=== PATIENT | female | born 2000 | race Caucasian/White ===

== ENCOUNTER 2023-07-08 21:37 | Emergency (ER) | payer OTHER, SELFPAY ==
[2023-07-08 21:43] VITALS: BP 150/90; PULSE 103; RESP 20; TEMP 37; O2SAT 97; BMI 33.7
--- NOTE | 2023-07-08 21:59 | PC.NURSE ---
patient would like covid/flu swab done. states she has had chills, cough, congestion since saturday. has been taking tylenol and motrin as well as dayquil and nyquil. patient has not been around anyone recently that she knew was sick. normal o2 saturation. no difficulties breathing or SOB. normal lung sounds.
[2023-07-08 22:36] LABS: Adenovirus NOT DETECTED (NOT DETECTE); Bordetella parapertussis NOT DETECTED (NOT DETECTE); Coronavirus 229E NOT DETECTED (NOT DETECTE); Coronavirus HKU1 NOT DETECTED (NOT DETECTE); Coronavirus NL63 NOT DETECTED (NOT DETECTE); Coronavirus OC43 NOT DETECTED (NOT DETECTE); Human Metapneumovirus NOT DETECTED (NOT DETECTE); Human Rhinovirus/Enterovirus NOT DETECTED (NOT DETECTE); Influenza A NOT DETECTED (NOT DETECTE); Influenza B NOT DETECTED (NOT DETECTE); Mycoplasma pneumoniae NOT DETECTED (NOT DETECTE); Parainfluenza Virus 1 NOT DETECTED (NOT DETECTE); Parainfluenza Virus 2 NOT DETECTED (NOT DETECTE); Parainfluenza Virus 3 NOT DETECTED (NOT DETECTE); Parainfluenza Virus 4 NOT DETECTED (NOT DETECTE); Respiratory Syncytial Virus NOT DETECTED (NOT DETECTE); SARS-CoV-2 NOT DETECTED (NOT DETECTE)
--- NOTE | 2023-07-08 22:51 | ED.URI1 ---
HPI - URI/Sore Throat General Chief Complaint: Upper Respiratory Infection Stated Complaint: POSS COVID/FLU Time Seen by Provider: 07/08/23 22:48 Source: patient History of Present Illness HPI Narrative: ill since last PM with gen. body aches, cough, nausea and vomiting and feels weak. Not short of breath. cough is dry. No abdominal pain Related Data Home Medications Medication Instructions Recorded Confirmed norethindrone 1 mg-ethinyl 1 tab PO DAILY 07/08/23 07/08/23 estradiol 20 mcg (21)-iron 75 mg (7) tablet (Shasha Fe 07/20 (28)) Allergies Allergy/AdvReac Type Severity Reaction Status Date / Time No Known Drug Allergies Allergy Verified 07/08/23 21:53 Review of Systems ROS Status of ROS 10 or more systems reviewed and unremarkable except as noted in history and below [facility] Social History Smoking status: Never smoker Exam Constitutional Vital Signs, click to edit/add: Last Vital Signs Temp 98.6 F 07/08/23 21:43 Pulse 103 H 07/08/23 21:43 Resp 20 07/08/23 21:43 BP 150/90 H 07/08/23 21:43 Pulse Ox 97 07/08/23 21:43 O2 Del Method Room Air 07/08/23 21:43 Common normals: no apparent distress, average body habitus, oriented x3, no limitations, healthy appearing, alert and well nourished Eye Common normals: EOMs intact bilaterally and conjunctivae normal Respiratory Common normals: normal respiratory effort, no retractions, no use of accessory muscles and clear to auscultation bilaterally Cardio Common normals: regular rate, regular rhythm, S1 normal heart sound and S2 normal heart sound GI Common normals: Normal to inspection, nondistended, normoactive bowel sounds present, soft to palpation and non-tender Extremity Common normals: normal to inspection and full ROM Neuro Common normals: oriented x3, CN's II-XII intact bilaterally, moves all extremities and no focal motor deficits Psych Appearance: grossly normal Course Vital Signs Vital signs: Vital Signs Temperature 98.6 F 07/08/23 21:43 Pulse Rate 103 H 07/08/23 21:43 Respiratory Rate 20 07/08/23 21:43 Blood Pressure 150/90 H 07/08/23 21:43 Pulse Oximetry 97 07/08/23 21:43 Oxygen Delivery Method Room Air 07/08/23 21:43 Temperature 98.6 F 07/08/23 21:43 Pulse Rate 103 H 07/08/23 21:43 Respiratory Rate 20 07/08/23 21:43 Blood Pressure 150/90 H 07/08/23 21:43 Pulse Oximetry 97 07/08/23 21:43 Oxygen Delivery Method Room Air 07/08/23 21:43 MDM - URI/Sore Throat MDM Narrative Medical decision making narrative: patient ill since yesterday with body aches, nausea vomiting and gen. weakness. Has a cough but is not short of breath. exam neg. Treated with zofran and nausea resolved. Hydrated with Normal saline. cxray with findings of viral pneumonia and swab positive for influenza. Patient feeling better after intervention in the department and discharged to follow up with her doctor in next 2-3 days for recheck Lab Data Labs: Lab Results 07/08/23 07/08/23 07/08/23 Range/Units 22:00 22:30 22:56 WBC 6.3 (4.0-11.0) 10^3/uL RBC 4.55 (4.20-5.40) 10^6/uL Hgb 12.6 (12.0-16.0) g/dL Hct 38.7 (36.0-48.0) % MCV 85.1 (81.0-99.0) fL MCH 27.7 (26.7-34.0) pg MCHC 32.6 (29.9-35.2) g/dL RDW 13.2 (11.0-15.0) % Plt Count 226 (150-450) 10^3/uL MPV 11.0 (9.5-13.5) fL Neut % (Auto) 85.9 H (43.0-75.0) % Lymph % (Auto) 6.8 L (20.5-60.0) % Wilcox % (Auto) 6.3 (1.7-12.0) % Eos % (Auto) 0.5 L (0.9-7.0) % Baso % (Auto) 0.3 (0.2-2.0) % Neut # (Auto) 5.4 (1.4-6.5) 10^3/uL Lymph # (Auto) 0.4 L (1.2-3.8) 10^3/uL Wilcox # (Auto) 0.4 (0.3-0.8) 10^3/uL Eos # (Auto) 0.0 (0.0-0.7) 10^3/uL Baso # (Auto) 0.0 (0.0-0.1) 10^3/uL Abs Immat Gran (auto) 0.01 (0.00-0.03) 10^3/uL Imm/Tot Granulo (auto) 0.2 (0.0-0.5) % Sodium 131 L (136-145) mmol/L Potassium 3.3 L (3.5-5.1) mmol/L Chloride 101 (98-107) mmol/L Carbon Dioxide 24.2 (21.0-32.0) mmol/L Anion Gap 9.1 BUN 5.0 L (7.0-18.0) mg/dL Creatinine 0.85 (0.55-1.02) mg/dL Est GFR ( Amer) >60 (>=60) Est GFR (Non-Af Amer) >60 (>=60) BUN/Creatinine Ratio 5.9 Glucose 100 (74-106) mg/dL Lactate 1.8 (0.4-2.0) mmol/L Calcium 8.7 (8.5-10.1) mg/dL Total Bilirubin 0.2 (0.2-1.0) mg/dL AST 11 L (15-37) U/L ALT 25 (14-59) U/L Alkaline Phosphatase 74 (46-116) U/L Total Protein 7.8 (6.4-8.2) g/dL Albumin 3.4 (3.4-5.0) g/dL Globulin 4.4 g/dL Albumin/Globulin Ratio 0.8 Lipase 26.0 (16.0-77.0) U/L Urine Color Lt. yellow (YELLOW) Urine Clarity Clear (CLEAR) Urine pH 6.0 (5.0-9.0) Ur Specific Chapin 1.025 (1.005-1.025) Urine Protein Negative (NEG/TRACE) mg/dL Urine Glucose (UA) Negative (NEGATIVE) mg/dL Urine Ketones Negative (NEGATIVE) mg/dL Urine Occult Blood Negative (NEGATIVE) Urine Nitrite Negative (NEGATIVE) Urine Bilirubin Negative (NEGATIVE) Urine Urobilinogen 0.2 (0.2-1.0) EU/dL Ur Leukocyte Esterase Trace A (NEGATIVE) Urine RBC 2-5 A (0-2) #/HPF Urine WBC 2-5 A (NONE SEEN) #/HPF Ur Squamous Epith Cells Few A (NONE/RARE) #/LPF Urine Crystals None seen (None Seen) #/HPF Urine Bacteria Trace A (NONE SEEN) #/HPF Urine Casts None seen (NONE SEEN) #/LPF Urine Mucus None seen (NONE SEEN) Ur Culture Indicated? No Urine HCG, Qual Negative (NEGATIVE) Adenovirus (PCR) Not detected (NOT DETECTE) C. pneumoniae DNA (PCR) Not detected (NOT DETECTE) Coronavirus Type OC43 Not detected (NOT DETECTE) Coronavirus Type HKU1 Not detected (NOT DETECTE) Coronavirus Type 229E Not detected (NOT DETECTE) Coronavirus Type NL63 Not detected (NOT DETECTE) Human Metapneumovir PCR Not detected (NOT DETECTE) Influ A (H1N1/09) PCR Detected M. pneumoniae (PCR) Not detected (NOT DETECTE) Parainfluenza PCR Not detected (NOT DETECTE) Parainfluenza 2 (PCR) Not detected (NOT DETECTE) Parainfluenza 3 (PCR) Not detected (NOT DETECTE) Parainfluenza 4 (PCR) Not detected (NOT DETECTE) RSV (RT-PCR) Not detected (NOT DETECTE) Entero/Rhino (PCR) Not detected (NOT DETECTE) SARS-CoV-2 (PCR) Not detected (NOT DETECTE) Bordetella pertussis (PCR) Not detected (NOT DETECTE) B parapertussis DNA PCR Not detected (NOT DETECTE) Influenza Type A (PCR) Not detected (NOT DETECTE) Influenza Type B (PCR) Not detected (NOT DETECTE) Imaging Data Chest x-ray: Radiologist's impression: Kamini lundberg [id number] Patient Name: JORGE DING MRN: [id number] date: 2000 Sex: F Assigned Patient Location: ER Current Patient Location: ER Accession/Order Number: [id number] Exam Date: 07/08/2023 23:15 Report Date: 07/08/2023 23:48 At the request of: RADHA ARCHULETA Procedure: XR chest 1V CXR HISTORY: Shortness of breath. COMPARISON: None. TECHNIQUE: 1 view of the chest submitted for review. FINDINGS: The lungs are hyperaerated. Lines and tubes: None No acute focal infiltrate. Prominence of bronchopulmonary markings. No effusion. Cardiac silhouette measures within normal limits. Pulmonary vascularity is prominent. Osseous structures are normal for age. XR/XR chest 1V IMPRESSION: Prominence of bronchopulmonary markings. Please correlate for viral pneumonia vs fluid overload. Electronically authenticated by: SIMONA HERNÁNDEZ Date: 07/08/2023 23:48 Dictated By: Simona Hernández M.D. Signed By: 07/08/23 3207 DD/ 0900 TD/TT: Discharge Plan Discharge Chief Complaint: Upper Respiratory Infection Clinical Impression: Influenza Prescriptions / Home Meds: No Action norethindrone-e.estradiol-iron [Shasha Johnson 07/20 (28)] 1 mg-20 mcg (21)/75 mg (7) tablet 1 tab PO DAILY Instructions: Influenza (ED) Referrals: Physician,Non-Staff, MD [Primary Care Provider] - 1 week
[2023-07-08] MEDS: ONDANSETRON PF 4 MG/2 ML VIAL IV (22:52)
--- NOTE | 2023-07-08 22:53 | XR_ITS ---
The [address] [address] Patient Name: JORGE DING MRN: [id number] date: 2000 Sex: F Assigned Patient Location: ER Current Patient Location: ER Accession/Order Number: [id number] Exam Date: 07/08/2023 23:15 Report Date: 07/08/2023 23:48 At the request of: RADHA ARCHULETA Procedure: XR chest 1V CXR HISTORY: Shortness of breath. COMPARISON: None. TECHNIQUE: 1 view of the chest submitted for review. FINDINGS: The lungs are hyperaerated. Lines and tubes: None No acute focal infiltrate. Prominence of bronchopulmonary markings. No effusion. Cardiac silhouette measures within normal limits. Pulmonary vascularity is prominent. Osseous structures are normal for age. XR/XR chest 1V IMPRESSION: Prominence of bronchopulmonary markings. Please correlate for viral pneumonia vs fluid overload. Electronically authenticated by: ANGELIA HERNÁNDEZ Date: 07/08/2023 23:48
[2023-07-08 23:04] LABS: Basophils Percent Auto 0.3 % (0.2-2.0); Eosinophils Percent Auto 0.5 % (0.9-7.0); Hematocrit 38.7 % (36.0-48.0); Hemoglobin 12.6 g/dL (12.0-16.0); Immature Granulocytes Abs Auto 0.01 10^3/uL (0.00-0.03); Immature Granulocytes Pct Auto 0.2 % (0.0-0.5); Lymphocytes Absolute Auto 0.4 10^3/uL (1.2-3.8); Lymphocytes Percent Auto 6.8 % (20.5-60.0); Mean Corpuscular HGB Conc 32.6 g/dL (29.9-35.2); Mean Corpuscular Hemoglobin 27.7 pg (26.7-34.0); Mean Corpuscular Volume 85.1 fL (81.0-99.0); Monocytes Absolute Auto 0.4 10^3/uL (0.3-0.8); Monocytes Percent Auto 6.3 % (1.7-12.0); Neutrophils Absolute Auto 5.4 10^3/uL (1.4-6.5); Neutrophils Percent Auto 85.9 % (43.0-75.0); Platelet Count 226 10^3/uL (150-450); Red Blood Count 4.55 10^6/uL (4.20-5.40); Red Cell Distribution Width 13.2 % (11.0-15.0); White Blood Count 6.3 10^3/uL (4.0-11.0)
[2023-07-08] MEDS: 0.9 % SODIUM CHLORIDE 1,000 ML 999 ML IV (23:06)
[2023-07-08 23:09] LABS: Bilirubin Urine NEGATIVE (NEGATIVE); Blood Urine NEGATIVE (NEGATIVE); Clarity Urine CLEAR (CLEAR); Color Urine LT. YELLOW (YELLOW); Glucose Urine UA NEGATIVE (NEGATIVE); Ketones Urine NEGATIVE (NEGATIVE); Leukocyte Esterase Urine TRACE (NEGATIVE); Nitrite Urine NEGATIVE (NEGATIVE); Protein Urine NEGATIVE (NEG/TRACE); Specific Gravity Urine 1.025 (1.005-1.025); Urobilinogen Urine 0.2 EU/dL (0.2-1.0)
[2023-07-08 23:11] LABS: HCG Qualitative Urine* NEGATIVE (NEGATIVE); Urine Microscopic Indicated YES
[2023-07-08 23:17] LABS: Bacteria Urine TRACE #/HPF (NONE SEEN); Cast Seen? NONE SEEN #/LPF (NONE SEEN); Crystals Seen? None Seen #/HPF (None Seen); Mucus Urine NONE SEEN (NONE SEEN); Squamous Epithelial Cell Urine FEW #/LPF (NONE/RARE); Urine Culture Indicated NO
[2023-07-08 23:19] LABS: Lactate/Lactic Acid 1.8 mmol/L (0.4-2.0)
[2023-07-08 23:26] LABS: Alanine Aminotransferase 25 U/L (14-59); Albumin Globulin Ratio 0.8; Albumin Level 3.4 g/dL (3.4-5.0); Alkaline Phosphatase 74 U/L (46-116); Anion Gap 9.1; Aspartate Amino Transferase 11 U/L (15-37); BUN Creatinine Ratio 5.9; Bilirubin Total 0.2 mg/dL (0.2-1.0); Calcium 8.7 mg/dL (8.5-10.1); Carbon Dioxide 24.2 mmol/L (21.0-32.0); Chloride 101 mmol/L (98-107); Estimated GFR (African America >60 (>=60); Estimated GFR (Non-African Ame >60 (>=60); Globulin 4.4 g/dL; Glucose 100 mg/dL (74-106); Potassium 3.3 mmol/L (3.5-5.1); Sodium 131 mmol/L (136-145); Total Protein 7.8 g/dL (6.4-8.2)
[2023-07-08 23:27] LABS: Influenza A\\H1-2009 DETECTED
[2023-07-09] MEDS: ONDANSETRON 4 MG RAPDIS TABLET SL (00:04)
[2023-07-09 00:07] VITALS: BP 130/82; PULSE 90; RESP 16; O2SAT 99
== END 2023-07-09 00:10 | disposition home or self-care (01) ==
PROVIDERS: Emergency Provider Internal Medicine
DX: J10.1 Influenza due to other identified influenza virus with other respiratory manifestations (principal); Z20.822 Contact with and (suspected) exposure to COVID-19
CPT/HCPCS: 0202U; 36415; 71045; 80053; 81001; 83605; 83690; 84703; 85025; 96374; 99285; J2405; Q0162

== ENCOUNTER 2024-09-16 13:02 | Outpatient (OUT) | payer BC, SELFPAY ==
--- OUTSIDE RECORDS SUMMARY | 2024-09-16 13:24 | XMS_ITS | CCD ---
Author Organization [facility] Care Team Providers Care Patrol Agent Name Role Phone DR NORMA MELVIN Attending Unavailable EDDIE, DR NORMA Thomson Admitting Unavailable DR NORMA MELVIN Primary Care Unavailable DR NORMA MELVIN Consulting Unavailable ANDREA ., DR LIZAMA Admitting Unavailable ANDREA ., DR LIZAMA Consulting Unavailable ANDREA ., DR LIZAMA Attending Unavailable DR NORMA MELVIN Primary Care Unavailable Collette Smith Unavailable Norma Melvin Unavailable Medications Current Medications Medication Drug Class(es) Dates Sig (Normalized) Sig (Original) Norethindrone-E.Est radiol-Iron (6 sources) Estrogen Start: 09-03-2023 take 1 tablet by mouth once daily Norethindrone-E.Es tradiol-Iron 1 mg-20 mcg (21)/75 mg (7) tablet Active 1 TAB PO Daily September 03, 2023 1:00am Start: 09-03-2023 take 1 tablet by lizeth th once daily Norethindrone-E.Estradiol-Iron Active 1 TAB PO Daily September 03, 2023 1:00am Shasha FE 07/20 1 -20 MG-MCG Oral for 28 Days Active Completed/Discontinued Medications Medication Drug Class(es) Dates Sig (Normalized) Sig (Original) amoxicillin 500 mg oral tablet (4 sources) Penicillin-class Antibacterial Start: 10-09-2023 End: 12-11-2023 take 1 tablet by mouth three times daily Amoxicillin 500 mg tablet Discontinued 500 MG PO Three times daily October 09, 2023 12:00am December 11, 2023 10:03am meloxicam 15 mg oral tablet (5 sources) Nonsteroidal Anti-inflammatory Drug Start: 09-03-2023 End: 09-04-2023 take 1 tablet by mouth once daily Meloxicam 15 mg tablet Discontinued 15 MG PO Daily September 03, 2023 1:00am September 04, 2023 11:40am Start: 04-02-2023 take 1 tablet by lizeth th every twenty-four hours Meloxicam 15 MG 1 tablet Orally Once a day for 30 day(s) Mar, Active phentermine hydrochloride 37.5 mg oral tablet (11 sources) Sympathomimetic Amine Anorectic Start: 09-04-2023 End: 04-11-2024 take 1 tablet by mouth once daily 30 minutes after breakfast Phentermine (Adipex-P) 37.5 mg tablet Discontinued 37.5 MG PO Every morning 30 October 09, 2023 9:23am December 11, 2023 10:14am must administer 30 minutes before or 1-2 hours after breakfast Problems Active Problems Problem Classification Problem Date Documented Date Episodic/Chronic Anxiety disorders (5 sources) Anxiety disorder; Translations: [Anxiety disorder, unspecified] 09-03-2023 Chronic Contraceptive and procreative management (2 sources) Initiation of transdermal contraception; Translations: [Encounter for initial prescription of implantable subdermal contraceptive] Episodic Diabetes mellitus without complication (1 source) Abnormal glucose level; Translations: [Other abnormal glucose] Episodic Disorders of teeth and jaw (1 source) Periapical abscess without sinus tract; Translations: [Periapical abscess without sinus] Episodic Heart valve disorders (2 sources) Mitral valve disorder; Translations: [Nonrheumatic mitral (valve) prolapse] Onset: 10-08-2014 Chronic Immunizations and screening for infectious disease (2 sources) Sexually transmitted infectious disease; Translations: [Encounter for screening for infections with a predominantly sexual mode of transmission] 04-11-2024 Episodic Influenza (1 source) Upper respiratory tract infection due to Influenza; Translations: [Influenza due to unidentified influenza virus with other respiratory manifestations] Episodic Menopausal disorders (1 source) Premenopausal menorrhagia; Translations: [Excessive bleeding in the premenopausal period] Onset: 07-19-2014 Chronic Menstrual disorders (1 source) Dysmenorrhea; Translations: [Dysmenorrhea, unspecified] Onset: 11-11-2015 Chronic Mood disorders (1 source) Dysthymia; Translations: [Dysthymic disorder] Onset: 01-23-2016 Chronic Other complications of (1 source) Vomiting of ; Translations: [Vomiting of , unspecified] Episodic Other complications of (1 source) Finding related to ; Translations: [Other specified related conditions, unspecified trimester] Episodic Other ear and sense organ disorders (1 source) Infective otitis externa; Translations: [Unspecified infective otitis externa] Onset: 01-30-2017 Chronic Other female genital disorders (1 source) Noninflammatory disorder of the vagina; Translations: [Other specified noninflammatory disorders of vagina] Episodic Other female genital disorders (1 source) Disorder of female genital organs; Translations: [Unspecified condition associated with female genital organs and menstrual cycle] Episodic Other non-traumatic joint disorders (1 source) Pain in right shoulder Episodic Other nutritional; endocrine; and metabolic disorders (10 sources) Obesity; Translations: [Obesity, unspecified] 10-09-2023 Chronic Other nutritional; endocrine; and metabolic disorders (3 sources) Obesity, unspecified; Translations: [Obesity, unspecified] 09-04-2023 Chronic Other nutritional; endocrine; and metabolic disorders (1 source) Weight increased; Translations: [Abnormal weight gain] 09-16-2024 Episodic Other nutritional; endocrine; and metabolic disorders (1 source) Abnormal weight gain; Translations: [Abnormal weight gain] 09-16-2024 Episodic Other and delivery including normal (5 sources) test positive; Translations: [Encounter for test, result positive] Onset: 08-22-2020 Episodic Other screening for suspected conditions (not mental disorders or infectious disease) (5 sources) Encounter for screening for malignant neoplasm of cervix; Translations: [Encounter for screening for Streptococcus B] Onset: 11-06-2022 Episodic Other upper respiratory disease (1 source) Allergic rhinitis; Translations: [Allergic rhinitis, unspecified] Onset: 10-08-2014 Chronic Other upper respiratory infections (1 source) Chronic sinusitis; Translations: [Chronic sinusitis, unspecified] Chronic Other upper respiratory infections (5 sources) Acute upper respiratory infection, unspecified; Translations: [Acute sinusitis] Onset: 05-02-2015 Episodic Otitis media and related conditions (4 sources) Otitis media of right ear; Translations: [Otitis media, unspecified, right ear] 10-09-2023 Episodic Residual codes; unclassified (1 source) Gestation period, 38 weeks; Translations: [38 weeks gestation of ] Episodic Residual codes; unclassified (1 source) Gestation period, 36 weeks; Translations: [36 weeks gestation of ] Episodic Residual codes; unclassified (1 source) Gestation period, 37 weeks; Translations: [37 weeks gestation of ] Episodic Residual codes; unclassified (1 source) Gestation period, 30 weeks; Translations: [30 weeks gestation of ] Episodic Residual codes; unclassified (1 source) Gestation period, 34 weeks; Translations: [34 weeks gestation of ] Episodic Residual codes; unclassified (1 source) Gestation period, 26 weeks; Translations: [26 weeks gestation of ] Episodic Residual codes; unclassified (1 source) Gestation period, 28 weeks; Translations: [28 weeks gestation of ] Episodic Residual codes; unclassified (1 source) Gestation period, 18 weeks; Translations: [18 weeks gestation of ] Episodic Unclassified (2 sources) CONTACT W/AND (SUSP) EXPOS COVID-19; Translations: [CONTACT W/AND (SUSP) EXPOS COVID-19] Onset: 01-27-2022 Urinary tract infections (1 source) Urinary tract infectious disease; Translations: [Urinary tract infection, site not specified] Episodic Viral infection (2 sources) COVID-19; Translations: [Disease caused by 2019-nCoV] Onset: 01-27-2022 Past or Other Problems Problem Classification Problem Date Documented Date Episodic/Chronic Cardiac dysrhythmias (1 source) Palpitations; Translations: [Palpitations] Onset: 07-19-2014 Episodic Genitourinary symptoms and ill-defined conditions (1 source) Dysuria; Translations: [Dysuria] Onset: 04-18-2016 Episodic Malaise and fatigue (1 source) Malaise and fatigue; Translations: [Other malaise and fatigue] Onset: 10-08-2014 Episodic Nonmalignant breast conditions (1 source) Breast lump; Translations: [Unspecified lump in unspecified breast] Onset: 12-30-2014 Episodic Nonspecific chest pain (1 source) Chest pain; Translations: [Chest pain, unspecified] Onset: 03-14-2015 Episodic Other lower respiratory disease (1 source) Dyspnea; Translations: [Dyspnea, unspecified] Onset: 09-24-2014 Episodic Other nutritional; endocrine; and metabolic disorders (1 source) Overweight; Translations: [Overweight] Onset: 01-30-2017 Episodic Other nutritional; endocrine; and metabolic disorders (1 source) Body mass index 25-29 - overweight; Translations: [Body mass index 27.0-27.9, adult] Onset: 01-30-2017 Episodic Other skin disorders (1 source) Acne; Translations: [Acne, unspecified] Onset: 11-11-2015 Episodic Residual codes; unclassified (1 source) Gestation period, 14 weeks; Translations: [14 weeks gestation of ] Resolved: 06-27-2020 Episodic Residual codes; unclassified (1 source) Gestation period, 35 weeks; Translations: [35 weeks gestation of ] Resolved: 10-28-2020 Episodic Residual codes; unclassified (1 source) Gestation period, 10 weeks; Translations: [10 weeks gestation of ] Resolved: 05-27-2020 Episodic Spondylosis; intervertebral disc disorders; other back problems (2 sources) Low back pain; Translations: [Lumbago] Onset: 10-01-2013 Episodic Sprains and strains (1 source) Sprain of medial collateral ligament of knee; Translations: [Sprain and strain of medial collateral ligament of knee] Onset: 10-01-2013 Episodic Unclassified (1 source) CONTACT W/AND (SUSP) EXPOS COVID-19; Translations: [CONTACT W/AND (SUSP) EXPOS COVID-19] Onset: 01-24-2022 Unclassified (1 source) Gynecological examination normal; Translations: [Routine gynecological examination] Onset: 06-27-2020 Resolved: 07-22-2020 Viral infection (1 source) Infectious mononucleosis; Translations: [Infectious mononucleosis, unspecified without complication] Onset: 10-08-2014 Episodic Results Test Name Value Interpretation Reference Range Facility No Panel InformationOrdered By: Fatoumata Dawson on 04-11-2024 Quick Strep (POC) [facility] PAP ACOG PANEL 2: 21 to 29on 11-13-2022 Age Gdln ACOG Testing 21-29 Normal [facility] Comment on above: Performed By: #### [id number] #### [facility] [address] [place] [address] Dr. Amalia Fontaine Covid-19 PCR (CVDTBH)on 12-30 SARS-CoV-2 (COVID-19) RNA ANALI+probe Ql (Unsp spec) Detected Critically abnormal NOT DETECTED [facility] Comment on above: Result Comment: This test is not yet approved or cleared by the [place] FDA. When there are no FDA-approved or cleared tests available, and other criteria are met, FDA can make tests available under an emergency access mechanism called an Emergency Use Authorization (EUA). The EUA for this test is supported by the [place] of Health and Human Service's (HHS's) declaration that circumstances exist to justify the emergency use of in vitro diagnostics for the detection and/or diagnosis of the virus that causes COVID-19. This EUA will remain in effect (meaning this test can be used) for the duration of the COVID-19 declaration justifying emergency of IVDs, unless it is terminated or revoked by FDA (after which the test may no longer be used). Performed By: #### [facility] #### [facility] [address] [place] [address] Dr. Amalia Fontaine Vital Signs Date Time Vital Sign Value Performing Clinician Facility 09-16-2024 09:59-0400 Body height 160.02 cm [facility] 09-16-2024 09:59-0400 Body mass index (BMI) [Ratio] 34.9 kg/m2 [facility] 09-16-2024 09:59-0400 Body weight 89.35 kg [facility] 09-16-2024 09:59-0400 Diastolic blood pressure 86 mm[Hg] [facility] 09-16-2024 09:59-0400 Heart rate 64 /min [facility] 09-16-2024 09:59-0400 Systolic blood pressure 133 mm[Hg] [facility] 04-11-2024 14:44-0400 Body height 160.02 cm [facility] 04-11-2024 14:44-0400 Body mass index (BMI) [Ratio] 34.2 kg/m2 [facility] 04-11-2024 14:44-0400 Body temperature 99 [degF] [facility] 04-11-2024 14:44-0400 Body weight 87.77 kg [facility] 04-11-2024 14:44-0400 Diastolic blood pressure 82 mm[Hg] [facility] 04-11-2024 14:44-0400 Heart rate 76 /min [facility] 04-11-2024 14:44-0400 Respiratory rate 16 /min [facility] 04-11-2024 14:44-0400 SaO2% (BldA) [Mass fraction] 96 % [facility] 04-11-2024 14:44-0400 Systolic blood pressure 128 mm[Hg] [facility] 12-11-2023 09:56-0400 Body height 160.02 cm [facility] 12-11-2023 09:56-0400 Body mass index (BMI) [Ratio] 32.8 kg/m2 [facility] 12-11-2023 09:56-0400 Body weight 83.91 kg [facility] 12-11-2023 09:56-0400 Diastolic blood pressure 88 mm[Hg] [facility] 12-11-2023 09:56-0400 Heart rate 82 /min [facility] 12-11-2023 09:56-0400 Systolic blood pressure 123 mm[Hg] [facility] 10-09-2023 09:06-0400 Body height 160.02 cm [facility] 10-09-2023 09:06-0400 Body mass index (BMI) [Ratio] 33.1 kg/m2 [facility] 10-09-2023 09:06-0400 Body weight 84.93 kg [facility] 10-09-2023 09:06-0400 Diastolic blood pressure 85 mm[Hg] [facility] 10-09-2023 09:06-0400 Heart rate 81 /min [facility] 10-09-2023 09:06-0400 Systolic blood pressure 132 mm[Hg] [facility] 09-04-2023 10:34-0500 Body height 160.02 cm [facility] 09-04-2023 10:34-0500 Body mass index (BMI) [Ratio] 34.8 kg/m2 [facility] 09-04-2023 10:34-0500 Body weight 89.13 kg [facility] 09-04-2023 10:34-0500 Diastolic blood pressure 97 mm[Hg] [facility] 09-04-2023 10:34-0500 Heart rate 79 /min [facility] 09-04-2023 10:34-0500 Systolic blood pressure 130 mm[Hg] [facility] 04-02-2023 14:45-0400 Body height 160.02 cm Norma Melvin Other [facility] Other 04-02-2023 14:45-0400 Body mass index (BMI) [Ratio] 33.51 kg/m2 Norma Melvin Other [facility] Other 04-02-2023 14:45-0400 Body weight 85.82 kg Norma Melvin Other [facility] Other 04-02-2023 14:45-0400 Diastolic blood pressure 94 mm[Hg] Norma Melvin Other [facility] Other 04-02-2023 14:45-0400 Systolic blood pressure 129 mm[Hg] Norma Melvin Other [facility] Other 01-17-2023 17:35-0400 Body height 160.02 cm Collette Smith Other [facility] Other 01-17-2023 17:35-0400 Body mass index (BMI) [Ratio] 32.59 kg/m2 Collette Smith Other [facility] Other 01-17-2023 17:35-0400 Body temperature 98.2 [degF] Collette Smith Other [facility] Other 01-17-2023 17:35-0400 Body weight 83.46 kg Collette Smith Other [facility] Other 01-17-2023 17:35-0400 Diastolic blood pressure 70 mm[Hg] Collette Smith Other [facility] Other 01-17-2023 17:35-0400 Respiratory rate 18 /min Collette Smith Other [facility] Other 01-17-2023 17:35-0400 SaO2% (BldA) [Mass fraction] 97 % Collette Smith Other [facility] Other 01-17-2023 17:35-0400 Systolic blood pressure 128 mm[Hg] Collette Smith Other [facility] Other Encounters Encounter Date Encounter Type Care Provider Facility Start: 09-16-2024 Patient encounter status [facility] Start: 09-16-2024 End: 09-16-2024 ambulatory [facility] Work Phone: Start: 09-16-2024 End: 09-16-2024 Encounter for general adult medical examination without abnormal findings [facility] Start: 09-16-2024 End: 09-16-2024 Patient encounter procedure [facility] Physician [facility] Work Phone: Start: 04-11-2024 End: 04-11-2024 ambulatory [facility] Work Phone: Start: 04-11-2024 End: 04-11-2024 Patient encounter procedure [facility] Physician [facility] Work Phone: Start: 12-11-2023 End: 12-11-2023 ambulatory [facility] Work Phone: Start: 12-11-2023 End: 12-11-2023 Patient encounter procedure [facility] Physician [facility] Work Phone: Start: 10-09-2023 End: 10-09-2023 ambulatory [facility] Work Phone: Start: 10-09-2023 End: 10-09-2023 Patient encounter procedure [facility] Work Phone: Start: 09-04-2023 End: 09-04-2023 Patient encounter procedure [facility] Physician [facility] Work Phone: Start: 04-02-2023 End: 04-02-2023 ambulatory Norma Melvin Other [facility] Other Start: 04-02-2023 Office outpatient vi sit 15 minutes Norma Melvin [facility] Start: 01-17-2023 End: 01-17-2023 ambulatory Collette Smith Other [facility] Other Start: 01-17-2023 Office outpatient ne w 30 minutes Collette Smith [facility] Start: 11-06-2022 End: 11-06-[address] ALDA MENDEZ . Facility:[facility] Start: 01-24-2022 End: 01-24-[address] NORMA MELVIN Facility:[facility] Start: 01-23-2022 Gynecological examin ation normal Norma Melvin Other [facility] Other Procedures Date Procedure Procedure Detail Performing Clinician Start: 04-11-2024 Quick Strep (POC) screening Norma schwartz Other screening Norma schwartz Other Depression screening Norma Melvin Other Diabetes mellitus screening Norma Melvin Other visit Norma Melvin Other Viral screening Norma Melvin Other Plan of Treatment Date Care Activity Detail Author [facility] Payers Date Payer Category Payer Unknown [id number] 1998 Unknown [id number] 1961 Unknown [id number] 1961 Unknown [id number] [facility] [id number] Unknown Sade BC/BS [id number] Social History Date Type Detail Facility Unknown if ever smoked [facility] Other Sex Assigned At Sex Assigned At [facility] Other Start: 2000 Sex Assigned At Female [facility] Tobacco smoking status NHIS Unknown if ever smoked [facility] Work Phone: Start: 09-16-2024 Sex Female (finding) [facility] NEGATED: Highlighted row [facility] Evaluation note 04-02-2023 Note Date & Type Note Facility 04-02-2023 Evaluation note Encounter Date Diagnosis Assessment Notes Mar, Acute pain of right shoulder (ICD-10 - M25.511) Hand out given for HEP and PT. Take meloxicam one daily and call if no improvement. [facility] Other Evaluation note 01-17-2023 Note Date & Type Note Facility 01-17-2023 Evaluation note Encounter Date Diagnosis Assessment Notes Dec, Viral URI (ICD-10 - J06.9) Discussed diagnosis with patient today in office. No testing performed at this time. Advised patient that will treat as viral URI. Supportive care as directed, increase fluids and rest, Tylenol/Motrin as directed, OTC cough/cold remedies as directed on packaging, cool mist humidifier, throat lozenges. Discussed infection control practices such as good hand washing and mask wearing. Patient to follow up with PCP if symptoms persist or worsen despite treatment. Immediate eval for SOB, difficulty breathing, chest pain, fevers that do not break with antipyretic or any other concerning symptoms as reviewed on patient education handout. Patient verbalizes understanding and is agreeable to treatment plan. Patient left in stable condition. [facility] Other Chief complaint+Reason for visit Narrative Note Date & Type Note Facility Chief complaint+Reason for visit Narrative Reason for Visit Contact with and (suspected) exposure to covid-19 Sore throat [facility] Work Phone: Evaluation note Note Date & Type Note Facility Evaluation note Diagnosis Onset Date Class 1 obesity with body ma ss index (BMI) of 34.0 to 34.9 in adult acute Class 1 obesity with body ma ss index (BMI) of 33.0 to 33.9 in adult acute [facility] Work Phone: Evaluation note Note Date & Type Note Facility Evaluation note Diagnosis Onset Date Class 1 obesity with body ma ss index (BMI) of 33.0 to 33.9 in adult acute Right otitis media acute [facility] Work Phone: Evaluation note Note Date & Type Note Facility Evaluation note Diagnosis Onset Date Contact with and (suspected) exposure to covid-19 noneactive Sore throat noneactive [facility] Work Phone: Evaluation note Note Date & Type Note Facility Evaluation note Diagnosis Onset Date Resolution Weight gain acute September 16 9:55am Wellness examination acute 2024 9:55am [facility] Work Phone: History general Narrative - Reported Note Date & Type Note Facility History general Narrative - Reported Type Surgical History Problem Title : none, Problem S tatus : Active, Surgical History Problem Title : past surgical history reviewed, Problem Description : past surgical history reviewed, Problem Comment : reviewed - no changes required, Problem Status : Inactive, Surgical History Problem Title : surg ical procedures, hx of, Problem Description : surgical procedures, hx of, Problem Comment : Tonsillectomy , Problem Status : Inactive, [facility] Other Summary Purpose Family History No Family History Records Found Advance Directives Advance Directive Response Recorded Date/ Time Advance Directives No August 29 3:39pm Chief Complaint and Reason for Visit Chief Complaint check up 1 MONTH FOLLOW UP Reason for Visit Class 1 obesity with body mass index (BMI) of 34.0 to 34.9 in adult Class 1 obesity with body mass index (BMI) of 33.0 to 33.9 in adult Chief Complaint 1 MONTH FOLLOW UP follow up Reason for Visit Class 1 obesity with body mass index (BMI) of 33.0 to 33.9 in adult Right otitis media Chief Complaint Admit Date wellness September 16, 2024 9:5 5am Reason for Visit Admit Date Weight gain September 16, 2024 9:5 5am Wellness examination September 16, 2024 9: 55am Additional Source Comments INFORMATION SOURCE (unrecogn ized section and content) DATE CREATED AUTHOR 11/14/2022 [facility] REASON FOR VISIT (unrecogniz ed section and content) CONGESTION, HEAD COLDSHOULDE R PAIN Care Teams (unrecognized sec tion and content) Team Status: Active Member Role Status Dates Norma Melvin MD Primary Care Provider Active Team Status: Inactive Member Role Status Dates Norma Melvin MD Primary Care Provide r, Attending Provider Active Start: September 04, 2023 End: September 04, 2023 Team Status: Inactive Member Role Status Dates Norma Melvin MD Primary Care Provide r, Attending Provider Active Start: October 09, 2023 End: October 09, 2023 Team Status: Inactive Member Role Status Dates Norma Melvin MD Primary Care Provide r, Attending Provider Active Start: December 11, 2023 End: December 11, 2023 Team Status: Inactive Member Role Status Dates Norma Melvin MD Primary Care Provider Active Start: April 11, 2024 End: April 11, 2024 Fatoumata Dawson APRN Attending Provider Active Sta rt: April 11, 2024 End: April 11, 2024 Team Status: Inactive Member Role Status Dates Norma Melvin MD Primary Care Provide r, Attending Provider Active Start: September 16, 2024 End: September 16, 2024 Goals (unrecognized section and content) Goals may be documented in a n alternate section FOR RECORDS PERTAINING TO PATIENTS WHO ARE OR HAVE BEEN ENROLLED IN A CHEMICAL DEPENDENCY/SUBSTANCEABUSE PROGRAM, SOME INFORMATION MAY BE OMITTED. This clinical summary was aggregated from multiple sources. Caution should be exercised in using it in the provision of clinical care. This summary normalizes information from multiple sources, and as a consequence, information in this document may materially change the coding, format and clinical context of patient data. In addition, data may be omitted in some cases. CLINICAL DECISIONS SHOULD BE BASED ON THE PRIMARY CLINICAL RECORDS. [facility] [employer] provides no warranty or guarantee of the accuracy or completeness of information in this document.
[2024-09-16 13:28] LABS: Basophils Percent Auto 0.5 % (0.2-2.0); Eosinophils Absolute Auto 0.1 10^3/uL (0.0-0.7); Eosinophils Percent Auto 1.6 % (0.9-7.0); Hematocrit 37.5 % (36.0-48.0); Hemoglobin 12.6 g/dL (12.0-16.0); Immature Granulocytes Abs Auto 0.01 10^3/uL (0.00-0.03); Immature Granulocytes Pct Auto 0.1 % (0.0-0.5); Lymphocytes Absolute Auto 2.2 10^3/uL (1.2-3.8); Lymphocytes Percent Auto 28.8 % (20.5-60.0); Mean Corpuscular HGB Conc 33.6 g/dL (29.9-35.2); Mean Corpuscular Hemoglobin 27.3 pg (26.7-34.0); Mean Corpuscular Volume 81.3 fL (81.0-99.0); Mean Platelet Volume 10.7 fL (9.5-13.5); Monocytes Absolute Auto 0.5 10^3/uL (0.3-0.8); Monocytes Percent Auto 6.5 % (1.7-12.0); Neutrophils Absolute Auto 4.8 10^3/uL (1.4-6.5); Neutrophils Percent Auto 62.5 % (43.0-75.0); Platelet Count 284 10^3/uL (150-450); Red Blood Count 4.61 10^6/uL (4.20-5.40); Red Cell Distribution Width 12.8 % (11.0-15.0); White Blood Count 7.7 10^3/uL (4.0-11.0)
[2024-09-16 13:44] LABS: Anion Gap 12.5; BUN Creatinine Ratio 12.6; Carbon Dioxide 26.7 mmol/L (21.0-32.0); Chloride 105 mmol/L (98-107); Estimated GFR (African America >60 (>=60 mL/min/1.73m^2); Estimated GFR (Non-African Ame >60 (>=60 mL/min/1.73m^2); Glucose 99 mg/dL (74-106); Potassium 4.2 mmol/L (3.5-5.1); Sodium 140 mmol/L (136-145)
[2024-09-16 13:51] LABS: Free T4 0.93 ng/dL (0.76-1.46)
== END 2024-09-16 13:03 | disposition home or self-care (01) ==
LOC: LAB 13:06
PROVIDERS: PCP Family Medicine; Visit Provider Family Medicine
DX: Z00.00 Encounter for general adult medical examination without abnormal findings (principal); R63.5 Abnormal weight gain
CPT/HCPCS: 36415; 80048; 84439; 84443; 85025

== ENCOUNTER 2024-12-21 14:21 | Outpatient (OUT) | payer BC, SELFPAY ==
--- NOTE | 2024-12-21 14:29 | XR_ITS ---
[facility] [place] [id number] Patient Name: JORGE DING MRN: [id number] date: 2000 Sex: F Assigned Patient Location: [facility] Current Patient Location: [facility] Accession/Order Number: [id number] Exam Date: 12/21/2024 16:35 Report Date: 12/21/2024 16:37 At the request of: FRANCISCO MARTINEZ Procedure: XR foot RT min 3V XR foot RT min 3V 12/21/2024 2:50 PM SIGNS AND SYMPTOMS: Pain in right heel PROTOCOL: Frontal, lateral, and oblique radiographs of the right foot COMPARISON: None FINDINGS: The bones are in anatomic alignment. There is no fracture or dislocation. The joint spaces are preserved. There is plantar surface calcaneal spurring. XR/XR foot RT min 3V IMPRESSION: No acute bony injury. There is mild plantar surface calcaneal spurring. Impression dictated by: Nitish Moise M.D. 12/21/2024 4:37 PM Dictation Location: [place] [address] Electronically authenticated by: [id number] Y Date: 12/21/2024 16:37
== END 2024-12-21 14:22 | disposition home or self-care (01) ==
LOC: RAD 14:24
PROVIDERS: PCP Nurse Practitioner Family; Visit Provider Nurse Practitioner Family
DX: M79.671 Pain in right foot (principal); M77.31 Calcaneal spur, right foot
CPT/HCPCS: 73630

== ENCOUNTER 2025-05-26 15:17 | Outpatient (REF) | payer BC, SELFPAY ==
--- OUTSIDE RECORDS SUMMARY | 2025-05-26 11:00 | XMS_ITS | Encounter Summary ---
Author Organization [facility] Address [address] [place] [address] Care Team Providers Care Shipping Point Inspector Name Role Phone Norma Melvin MD Primary Care Provider [phone] Reason for Visit * ReasonCommentsGynecologic Exam Encounter Details DateTypeDepartmentCare Team (Latest Contact Info)Tperogjoarm94/26/2025 11:00 AM ESTProcedure Visit [facility] [address] [place] [id number] Erika Vital PA [address] [place], [facility] Well woman exam with routine gynecological exam; control counseling Social History Tobacco UseTypesPacks/DayYears UsedDateSmoking Tobacco: NeverSmokeless Tobacco: Never Tobacco Cessation:Counseling Given: Not Answered Alcohol UseStandard Drinks/WeekCommentsNot Currently0 (1 standard drink = 0.6 oz pure alcohol)Occasional alcohol useCommentsNoSex and Gender Information ValueDate RecordedSex Assigned at QtybdEzsazi01/13/2023 10:34 AM EDTLegal Sex Fshhin6409/12/2022 6:34 PM EDTGender JfvdvnrtKozqxt81/13/2023 10:34 AM EDTSexual OrientationChoose not to ohgpnocd63/13/2023 10:34 AM EDTdocumented as of this encounter Last Filed Vital Signs Vital SignReadingTime TakenCommentsBlood Igipjodx607/9205/26/2025 11:20 AM EST Pulse--Temperature--Respiratory Rate--Oxygen Saturation--Inhaled Oxygen Concentration--Rrajdl77.4 kg (175 lb 1.9 oz)05/26/2025 11:20 AM ESTHeight--Body Mass Index31.02001/17/2023 11:19 AM EDTdocumented in this encounter Progress Notes * JEWELS Whitehead - 05/26/2025 11:00 AM EST Reason for Appointment: Patient ID: Radha Millan is a 24 y.o. female who presents for Gynecologic Exam Patient presents today for Annual Exam. MEDICATIONS Current Outpatient Medications Medication Instructions norethindrone-ethinyl estradiol (07/20) 1-20 MG-MCG tablet 1 tablet, Oral, Daily phentermine (ADIPEX-P) 37.5 mg, Daily before breakfast ALLERGIES No Known Allergies PROBLEMS Active Ambulatory Problems Diagnosis Date Noted No Active Ambulatory Problems Resolved Ambulatory Problems Diagnosis Date Noted No Resolved Ambulatory Problems Past Medical History: Diagnosis Date Anxiety and depression BMI 29.0-29.9,adult Well woman exam HISTORY PAST MEDICAL HISTORY SOCIAL HISTORY Past Medical History: Diagnosis Date Anxiety and depression BMI 29.0-29.9,adult Well woman exam Social History Tobacco Use Smoking status: Never Smokeless tobacco: Never Substance Use Topics Alcohol use: Not Currently Comment: Occasional alcohol use Drug use: Never FAMILY HISTORY No family history on file. SURGICAL HISTORY Past Surgical History: Procedure Laterality Date PAP SMEAR 08/15/2021 negative REVIEW OF SYSTEMS Review of Systems: Review of Systems Constitutional: Negative. HENT: Negative. Eyes: Negative. Respiratory: Negative. Cardiovascular: Negative. Gastrointestinal: Negative. Genitourinary: Negative. Musculoskeletal: Negative. Skin: Negative. Neurological: Negative. All other systems reviewed and are negative. Hematological: Negative. Endocrine: Negative. Allergic/Immunologic: Negative. OBJECTIVE Objective: Physical Exam Constitutional: Appearance: Normal appearance. She is well-developed. Genitourinary: Vulva normal. Right Adnexa: not tender and no mass present. Left Adnexa: not tender and no mass present. No cervical discharge. Breasts: Breasts are soft. Right: Normal. Left: Normal. HENT: Head: Normocephalic. Nose: Nose normal. Mouth/Throat: Mouth: Mucous membranes are moist. Cardiovascular: Rate and Rhythm: Normal rate and regular rhythm. Pulmonary: Effort: Pulmonary effort is normal. Breath sounds: Normal breath sounds. Abdominal: General: Bowel sounds are normal. There is no distension. Palpations: Abdomen is soft. Tenderness: There is no abdominal tenderness. There is no guarding or rebound. Musculoskeletal: General: No swelling. Normal range of motion. Cervical back: Normal range of motion. Right lower leg: No edema. Left lower leg: No edema. Neurological: General: No focal deficit present. Mental Status: She is alert and oriented to person, place, and time. Skin: General: Skin is warm and dry. Psychiatric: Mood and Affect: Mood normal. Behavior: Behavior normal. Vitals and nursing note reviewed. Exam conducted with a track inspecting supervisor present. Vitals: Estimated body mass index is 31.02 kg/m?? as calculated from the following: Height as of 01/17/23: 5' 3 . Weight as of this encounter: 175 lb 1.9 oz. BP: (!) 132/92 Patient's last menstrual period was 05/16/2025 (exact date). Assessment/Plan ICD-10-CM 1. Well woman exam with routine gynecological exam Z01.419 Pap Smear norethindrone-ethinyl estradiol (07/20) 1-20 MG-MCG tablet 2. control counseling Z30.09 norethindrone-ethinyl estradiol (07/20) 1-20 MG-MCG tablet Assessment/Plan Annual Exam: Patient presents today for an annual exam. Patient states she is doing well and has no complaints. Pap was obtained without difficulty. Refills on OCP sent in to pharmacy for 1 year. Patient is currently taking Adipex as well from PCP, but not taking Metformin. Follow Up: Patient is to return in one year for annual unless needed otherwise. Documented by Cathryn Caldera LPN on behalf of: JEWELS Whitehead documented in this encounter Plan of Treatment NameTypePriorityAssociated DiagnosesOrder SchedulePap SmearPathology and CytologyRoutine Well woman exam with routine gynecological exam Ordered: 05/26/2025documented as of this encounter Visit Diagnoses Diagnosis Well woman exam with routine gynecological exam Routine gynecological examination control counseling documented in this encounter Care Teams Team MemberRelationshipSpecialtyStart DateEnd Date Norma Melvin MD [address] [place] [address] PCP - GeneralFamily Medicine01/17/23documented as of this encounter
--- OUTSIDE RECORDS SUMMARY | 2025-05-26 15:21 | XMS_ITS | CCD ---
Author Organization [facility] Care Team Providers Care Pharmaceutical Salesperson Name Role Phone DR NORMA MELVIN Attending Unavailable NGOZI, DR NORMA Thomson Admitting Unavailable DR NORMA MELVIN Primary Care Unavailable DR NORMA MELVIN Consulting Unavailable ANDREA ., DR LIZAMA Admitting Unavailable ANDREA ., DR LIZAMA Consulting Unavailable ANDREA ., DR LIZAMA Attending Unavailable DR NORMA MELVIN Primary Care Unavailable Collette Smith Unavailable Norma Melvin Unavailable Medications Current Medications MedicationDrug Class(es)DatesSig (Normalized)Sig (Original) Norethindrone-E.Estradiol-Iron (6 sources)EstrogenStart: 32-07-0891iwyi 1 tablet by mouth once daily Norethindrone-E.Estradiol-Iron 1 mg-20 mcg (21)/75 mg (7) tablet Active 1 TAB PO Daily September 03, 2023 1:00amStart: 17-33-7469lgmp 1 tablet by mouth once daily Norethindrone-E.Estradiol-Iron Active 1 TAB PO Daily September 03, 2023 1:00am Shasha FE 07/20 1-20 MG-MCG Oral for 28 Days Active Completed/Discontinued Medications MedicationDrug Class(es)DatesSig (Normalized)Sig (Original)amoxicillin 500 mg oral tablet (4 sources)Penicillin-class AntibacterialStart: 10-09-2023 End: 82-50-2966szjd 1 tablet by mouth three times dailyAmoxicillin 500 mg tablet Discontinued 500 MG PO Three times daily October 09, 2023 12:00am 2023 10:03ammeloxicam 15 mg oral tablet (5 sources)Nonsteroidal Anti-inflammatory DrugStart: 09-03-2023 End: 07-72-2232hkvp 1 tablet by mouth once dailyMeloxicam 15 mg tablet Discontinued 15 MG PO Daily September 03, 2023 1:00am September 04, 2023 11:40amStart: 98-09-5784uhkf 1 tablet by mouth every twenty-four hoursMeloxicam 15 MG 1 tablet Orally Once a day for 30 day(s) Mar, Activephentermine hydrochloride 37.5 mg oral tablet (11 sources)Sympathomimetic Amine AnorecticStart: 09-04-2023 End: 56-43-0234leso 1 tablet by mouth once daily 30 minutes after breakfast Phentermine (Adipex-P) 37.5 mg tablet Discontinued 37.5 MG PO Every morning October 09, 2023 9:23am December 11, 2023 10:14am must administer 30 minutes before or 1-2 hours after breakfast Problems Active Problems Problem ClassificationProblemDateDocumented DateEpisodic/ChronicAnxiety disorders (5 sources)Anxiety disorder; Translations: [Anxiety disorder, unspecified] 95-90-9480JrbwvisMsefgixbsyvlx and procreative management (2 sources)Initiation of transdermal contraception; Translations: [Encounter for initial prescription of implantable subdermal contraceptive]EpisodicDiabetes mellitus without complication (1 source)Abnormal glucose level; Translations: [Other abnormal glucose]Episodic Disorders of teeth and jaw (1 source)Periapical abscess without sinus tract; Translations: [Periapical abscess without sinus]EpisodicHeart valve disorders (2 sources)Mitral valve disorder; Translations: [Nonrheumatic mitral (valve) prolapse]Onset: 55-41-2221TngyndkTrcnxopdqmgey and screening for infectious disease (2 sources)Sexually transmitted infectious disease; Translations: [Encounter for screening for infections witha predominantly sexual mode of transmission] 76-41-7693PfihfnchVcqdtsnjn (1 source)Upper respiratory tract infection due to Influenza; Translations: [Influenza due to unidentified influenza virus with other respiratory manifestations]EpisodicMenopausal disorders (1 source)Premenopausal menorrhagia; Translations: [Excessive bleeding in the premenopausal period]Onset: 83-79-5615YgilytvEinohlkch disorders (1 source)Dysmenorrhea; Translations: [Dysmenorrhea, unspecified]Onset: 36-83-1855LelwejmMkig disorders (1 source)Dysthymia; Translations: [Dysthymic disorder]Onset: 37-34-6337Aulzvun Other complications of (1 source)Vomiting of ; Translations: [Vomiting of , unspecified]EpisodicOther complications of (1 source)Finding related to ; Translations: [Other specified related conditions, unspecified trimester]EpisodicOther ear and sense organ disorders (1 source)Infective otitis externa; Translations: [Unspecified infective otitis externa]Onset: 29-37-3547EfajaevFzqij female genital disorders (1 source)Noninflammatory disorder of the vagina; Translations: [Other specified noninflammatory disorders ofvagina]EpisodicOther female genital disorders (1 source)Disorder of female genital organs; Translations: [Unspecified condition associated with female genital organs and menstrual cycle]Episodic Other non-traumatic joint disorders (1 source)Pain in right shoulderEpisodicOther nutritional; endocrine; and metabolic disorders (10 sources)Obesity; Translations: [Obesity, unspecified]26-72-7487TaknbpsQrmru nutritional; endocrine; and metabolic disorders (3 sources)Obesity, unspecified; Translations: [Obesity, unspecified]09-04-2023 ChronicOther nutritional; endocrine; and metabolic disorders (1 source)Weight increased; Translations: [Abnormal weight gain]09-16-2024 EpisodicOther nutritional; endocrine; and metabolic disorders (1 source)Abnormal weight gain; Translations: [Abnormal weight gain]09-16-2024 EpisodicOther and delivery including normal (5 sources) test positive; Translations: [Encounter for test, result positive]Onset: 52-86-8636VilbcmrgEtwyw screening for suspected conditions (not mental disorders or infectious disease) (5 sources)Encounter for screening for malignant neoplasm of cervix; Translations: [Encounter for screening for Streptococcus B]Onset: 27-65-3006ZzjzfoepPlhij upper respiratory disease (1 source)Allergic rhinitis; Translations: [Allergic rhinitis, unspecified] Onset: 31-12-1179GgwekjmIsgur upper respiratory infections (1 source)Chronic sinusitis; Translations: [Chronic sinusitis, unspecified] ChronicOther upper respiratory infections (5 sources)Acute upper respiratory infection, unspecified; Translations: [Acute sinusitis]Onset: 79-86-2632TfccmoioZgfeql media and related conditions (4 sources)Otitis media of right ear; Translations: [Otitis media, unspecified, right ear]51-96-1545AznyuikdFqflyddr codes; unclassified (1 source)Gestation period, 38 weeks; Translations: [38 weeks gestation of ]EpisodicResidual codes; unclassified (1 source)Gestation period, 36 weeks; Translations: [36 weeks gestation of ]EpisodicResidual codes; unclassified (1 source)Gestation period, 37 weeks; Translations: [37 weeks gestation of ]EpisodicResidual codes; unclassified (1 source)Gestation period, 30 weeks; Translations: [30 weeks gestation of ]EpisodicResidual codes; unclassified (1 source)Gestation period, 34 weeks; Translations: [34 weeks gestation of ]EpisodicResidual codes; unclassified (1 source)Gestation period, 26 weeks; Translations: [26 weeks gestation of ]EpisodicResidual codes; unclassified (1 source)Gestation period, 28 weeks; Translations: [28 weeks gestation of ]EpisodicResidual codes; unclassified (1 source)Gestation period, 18 weeks; Translations: [18 weeks gestation of ]EpisodicUnclassified (2 sources)CONTACT W/AND (SUSP) EXPOS COVID-19; Translations: [CONTACT W/AND (SUSP) EXPOS COVID-19]Onset: 86-42-0287Txuswsb tract infections (1 source)Urinary tract infectious disease; Translations: [Urinary tract infection, site not specified]EpisodicViral infection (2 sources)COVID-19; Translations: [Disease caused by 2019-nCoV]Onset: 01-27-2022 Past or Other Problems Problem ClassificationProblemDateDocumented DateEpisodic/ChronicCardiac dysrhythmias (1 source)Palpitations; Translations: [Palpitations]Onset: 32-52-8374Gxirfnhe Genitourinary symptoms and ill-defined conditions (1 source)Dysuria; Translations: [Dysuria]Onset: 68-08-1223KqcokndfZbvlpoh and fatigue (1 source)Malaise and fatigue; Translations: [Other malaise and fatigue]Onset: 88-73-7343LffeoelqKaybswtactnj breast conditions (1 source)Breast lump; Translations: [Unspecified lump in unspecified breast] Onset: 83-19-2211WwxlktraKqyckmwcgdg chest pain (1 source)Chest pain; Translations: [Chest pain, unspecified]Onset: 03-14-2015 EpisodicOther lower respiratory disease (1 source)Dyspnea; Translations: [Dyspnea, unspecified]Onset: 25-39-9598Slzpmgzf Other nutritional; endocrine; and metabolic disorders (1 source)Overweight; Translations: [Overweight]Onset: 13-79-2734WrligwbmOflcd nutritional; endocrine; and metabolic disorders (1 source)Body mass index 25-29 - overweight; Translations: [Body mass index 27.0-27.9, adult]Onset: 66-28-4317GlvnyeipSvmqb skin disorders (1 source)Acne; Translations: [Acne, unspecified]Onset: 28-44-2588Butkjbre Residual codes; unclassified (1 source)Gestation period, 14 weeks; Translations: [14 weeks gestation of ] Resolved: 66-18-2536JtidczyrUvwbuxoz codes; unclassified (1 source)Gestation period, 35 weeks; Translations: [35 weeks gestation of ] Resolved: 82-72-3034VwsyxnmiCvaongey codes; unclassified (1 source)Gestation period, 10 weeks; Translations: [10 weeks gestation of ] Resolved: 17-20-4927ZquiamksWkzcovdgxxi; intervertebral disc disorders; other back problems (2 sources)Low back pain; Translations: [Lumbago]Onset: 88-50-8163Ezhujpjn Sprains and strains (1 source)Sprain of medial collateral ligament of knee; Translations: [Sprain and strain of medial collateralligament of knee]Onset: 19-69-7135Nhznihvp Unclassified (1 source)CONTACT W/AND (SUSP) EXPOS COVID-19; Translations: [CONTACT W/AND (SUSP) EXPOS COVID-19]Onset: 29-80-7176Zyxymwzbizbv (1 source)Gynecological examination normal; Translations: [Routine gynecological examination]Onset: 06-27-2020 Resolved: 64-96-2781Vyori infection (1 source)Infectious mononucleosis; Translations: [Infectious mononucleosis, unspecified without complication]Onset: 39-25-9927Syfddkkb Results Test NameValueInterpretationReference RangeFacilityNo Panel InformationOrdered By: Fatoumata Dawson on 72-75-7081Dqmch Strep (POC)[facility] HospitalPAP ACOG PANEL 2: 21 to 29on 12-36-8155Bat Gdln ACOG Bnywaxu54-08ZjtxsaHcl Bellevue HospitalComment on above:Performed By: #### [id number] #### [facility] [address] [address] [address] Amalia FontaineCovid-19 PCR (CVDTBH)on 09-33-1255RTGD-CoV-2 (COVID-19) RNA ANALI+probe Ql (Unsp spec)DetectedCritically abnormalNOT DETECTEDThe [facility] HospitalCombeaum[facility] on above:Result Comment: This test is not yet approved or cleared by the [place] FDA. When there are no FDA-approved or cleared tests available, and other criteria are met, FDA can make tests available under an emergency access mechanism called an Emergency Use Authorization (EUA). The EUA for this test is supported by the [place] of Health and Human Service's (HHS's) declaration [...] no longer be used). Performed By: #### CVDTBH #### [facility] [address] [address] [address] Amalia Fontaine Vital Signs Date TimeVital SignValuePerforming CltjxjrlnSzycrlga09-45-8347 09:59-0400Body vygvvj523.02 cmMercy Memorial Hospital03-19-2025 09:59-0400Body mass index (BMI) [Ratio]34.9 kg/m2NjtdmvawoMercy Memorial Hospital03-19-2025 09:59-0400Body .35 kgMercy Memorial Hospital03-19-2025 09:59-0400Diastolic blood xynapala69 mm[Hg][facility] 09-16-2024 09:59-0400Heart rate64 /minMercy Memorial Hospital 09-16-2024 09:59-0400Systolic blood amroceiq536 mm[Hg][facility]10-12-2024 14:44-0400Body .02 cmMercy [facility] Hospital10-12-2024 14:44-0400Body mass index (BMI) [Ratio]34.2 kg/p5BwykoxbznMercy Memorial Hospital10-12-2024 14:44-0400Body [degF][facility]10-12-2024 14:44-0400Body .77 kgMercy Memorial Hospital10-12-2024 14:44-0400Diastolic blood vnhdyxrt33 mm[Hg] [facility]10-12-2024 14:44-0400Heart rate76 /[facility]10-12-2024 14:44-0400Respiratory rate16 /[facility]10-12-2024 14:44-5605YmT5% (BldA) [Mass fraction]96 % [facility]10-12-2024 14:44-0400Systolic blood uutdmuek602 mm[Hg][facility]06-12-2024 09:56-0400Body wqacia918.02 cm [facility]06-12-2024 09:56-0400Body mass index (BMI) [Ratio]32.8 kg/o7QpinpkyuwMercy Memorial Hospital06-12-2024 09:56-0400Body .91 kgMercy Memorial Hospital06-12-2024 09:56-0400Diastolic blood eimywjig12 mm[Hg][facility]06-12-2024 09:56-0400 Heart rate82 /[facility]06-12-2024 09:56-0400Systolic blood tekgamyy945 mm[Hg][facility]04-10-2024 09:06-0400 Body .02 cmMer[facility] Memorial Hospital04-10-2024 09:06-0400Body mass index (BMI) [Ratio]33.1 kg/i5NybdaqjrjMercy Memorial Hospital04-10-2024 09:06-0400Body vtixtb62.93 kgMercy Memorial Hospital04-10-2024 09:06-0400Diastolic blood ybcxushx06 mm[Hg][facility] 10-09-2023 09:06-0400Heart rate81 /[facility] 10-09-2023 09:06-0400Systolic blood mffozkhu620 mm[Hg][facility]03-06-2024 10:34-0500Body izvyko316.02 cmMercy Memorial Hospital03-06-2024 10:34-0500Body mass index (BMI) [Ratio]34.8 kg/w1VqdsxnhqxMercy Memorial Hospital03-06-2024 10:34-0500Body segxqs80.13 kgMercy Memorial Hospital03-06-2024 10:34-0500Diastolic blood nkegqyav77 mm[Hg] [facility]03-06-2024 10:34-0500Heart rate79 /[facility]03-06-2024 10:34-0500Systolic blood ydtxwusf359 mm[Hg] [facility]10-03-2023 14:45-0400Body jvnyoe043.02 cmNorma Melvin Other [employer] Other 10-03-2023 14:45-0400Body mass index (BMI) [Ratio] 33.51 kg/b7TseldjNorma Melvin Other [employer] Other 10-03-2023 14:45-0400Body .82 kgNorma Melvin Other [employer] Other 10-03-2023 14:45-0400Diastolic blood peqshdvv25 mm[Hg] Norma Melvin Other [employer] Other 10-03-2023 14:45-0400Systolic blood jsqhjopv141 mm[Hg] Norma Melvin Other [employer] Other 07-20-2023 17:35-0400Body pykikq597.02 Augustus Smith Other [employer] Other 07-20-2023 17:35-0400Body mass index (BMI) [Ratio] 32.59 kg/r7PszmsCollette Smith Other [employer] Other 07-20-2023 17:35-0400Body hsanakxsyfh61.2 [degF]Collette Smith Other [employer] Other 07-20-2023 17:35-0400Body .46 kgCollette Smith Other [employer] Other 07-20-2023 17:35-0400Diastolic blood mm[Hg] Collette Smith Other [employer] Other 07-20-2023 17:35-0400Respiratory rate18 /minCollette Smith Other [employer] Other 07-20-2023 17:35-4206IjY9% (BldA) [Mass fraction]97 % Collette Smith Other [employer] Other 07-20-2023 17:35-0400Systolic blood henjxnbz917 mm[Hg] Collette Smith Other [employer] Other Encounters Encounter DateEncounter TypeCare ProviderFacilityStart: 13-38-8283Jzstfau encounter statusOhioHealth Mansfield Hospitaltart: 09-16-2024 End: 26-82-9920gmuvruebqeCfcvvxctm [facility] Work Phone: Start: 09-16-2024 End: 48-26-0143Qhvgwtyih for general adult medical examination without abnormal findingsOhioHealth Mansfield Hospitaltart: 09-16-2024 End: 14-81-8207Zumzdrg encounter procedureAt[facility] Work Phone: Start: 04-11-2024 End: 69-67-3157vdlkoussbcTvvhzzmilUniversity Hospitals [facility] Work Phone: Start: 04-11-2024 End: 35-07-0672Xhtsqnr encounter procedureAt[facility] Work Phone: Start: 12-11-2023 End: 15-61-6508miumltqzodAysqtcaspUniversity Hospitals [facility] Work Phone: Start: 12-11-2023 End: 55-92-0948Fzcfxto encounter procedureAt[facility] Work Phone: Start: 10-09-2023 End: 62-43-0008vwhpudeheuLbzsqjgmfUniversity Hospitals [facility] Work Phone: Start: 10-09-2023 End: 87-42-3943Molrqaj encounter procedureAt[facility] Work Phone: Start: 09-04-2023 End: 01-78-6170Uicalus encounter procedureAt[facility] Health [facility]ician [facility] Work Phone: Start: 04-02-2023 End: 09-86-8925ganfbvlcohQrecxf Braun Other [employer] [facility] Other Start: 11-20-2195Oqlldy outpatient visit 15 minutes Norma Quinn [facility]: 01-17-2023 End: 48-55-0830rbqupwyheeXygxq Keller Other [employer] Other Start: 76-80-2187Jvnjgn outpatient new 30 minutesCollette Preciado [facility] ClydeStart: 11-06-2022 End: 62-80-9012esilrlfrwqUL COREY FAZIO .Facility:H1Xfztc: 01-24-2022 End: 33-90-7540qhlfwttkabTW NORMA Thomson NGOZIFacility:F5Qknez: 01-23-2022 Gynecological examination normalMarcia Melvin Other [facility] Other Procedures DateProcedureProcedure DetailPerforming ClinicianStart: 80-03-4952Uezzd Strep (POC) screeningMarcia Melvin Other Antenatal screeningMarcia Melvin Other Depression screeningMarcia Melvin Other Diabetes mellitus screeningMarcia Melvin Other Postnatal visitMarcia Ngozi Other Viral screeningMarcia Melvin Other Plan of Treatment DateCare ActivityDeGalion Community Hospital Payers DatePayer CategoryPayerPolicy [id number] [facility] [id number] Medical Center- [place]/[id number] Social History DateTypeDetailFacilityUnknown if ever smokedNouniversity of [facility] health care [facility] Other Sex Assigned At BirthSex Assigned At BirthNoun[facility] of [facility] care [facility] Other Start: 90-69-0892Tpf Assigned At [facility] HospitalTobacco smoking status NHISUnknown if ever smoked [facility] Work Phone: Start: 39-77-1440GtqCydpuo (finding)[facility] HospitalNEGATED: Highlighted rowMercy Memorial Hospital Evaluation note 04-02-2023 Note Date & UcpkXtzaSjcpriqt51-20-7374 Evaluation note* Encounter Date Diagnosis Assessment Notes Treatment Notes Treatment Clinical Notes Mar, Acute pain of right shoulder (IC D-10 - M25.511) Hand out given for HEP and PT. Take meloxicam one daily and call if no improvement. [employer] Other Evaluation note 01-17-2023 Note Date & LlakIjgjWxxmdqxn20-78-0651 Evaluation note* Encounter Date Diagnosis Assessment Notes Treatment Notes Treatment Clinical Notes Dec, Viral URI (ICD-10 - J06.9) [...] treatment plan. Patient left in stable condition. [employer] Other Chief complaint+Reason for visit Narrative Note Date & TypeNoteFacilityChief complaint+Reason for visit Narrative* Chief Complaint Sore throat, chills Reason for Visit Contact with and (gillis spected) exposure to covid-19 Sore throat [facility] Work Phone: Evaluation note Note Date & TypeNoteFacilityEvaluation note* Diagnosis Onset Date Resolution Status Class 1 obesity with body mass index (BM I) of 34.0 to 34.9 in adult acuteClass 1 obesity with body mass index (BMI) of 33.0 to 33.9 in adultacute [facility] Work Phone: Evaluation note Note Date & TypeNoteFacilityEvaluation note* Diagnosis Onset Date Resolution Status Class 1 obesity with body mass index (BM I) of 33.0 to 33.9 in adult acuteRight otitis mediaacute [facility] Work Phone: Evaluation note Note Date & TypeNoteFacilityEvaluation note* Diagnosis Onset Date Resolution Status Contact with and (suspected) exposure to covid-19 noneactiveSore throatnoneactive [facility] Work Phone: Evaluation note Note Date & TypeNoteFacilityEvaluation note* Diagnosis Onset Date Resolution Status Admit Date Weight gain acuteMar 2024 9:55amWellness examinationacuteNor[facility] 2024 9:55am [facility] Work Phone: History general Narrative - Reported Note Date & TypeNoteFacilityHistory general Narrative - Reported* Type Description Date Surgical History Problem Title : none, Problem S tatus : Active, Surgical HistoryProblem Title : past surgical history reviewed, Problem Description : past surgical history reviewed, Problem Comment : reviewed - no changes required, Problem Status : Inactive,Surgical HistoryProblem Title : surgical procedures, hx of, Problem Description : surgical procedures, hx of, Problem Comment : Tonsillectomy , Problem Status : Inactive, [employer] Other Summary Purpose Family History No Family History Records Found Advance Directives Advance Directive Response Recorded Date/ Time Advance Directives No August 29 3:39pm Chief Complaint and Reason for Visit Chief Complaint check up 1 MONTH FOLLOW UPReason for VisitClass 1 obesity with body mass index (BMI) of 34.0 to 34.9 in adult Class 1 obesity with body mass index (BMI) of 33.0 to 33.9 in adult Chief Complaint 1 MONTH FOLLOW UP follow upReason for VisitClass 1 obesity with body mass index (BMI) of 33.0 to 33.9 in adult Right otitis media Chief Complaint Admit Date wellness September 16, 2024 9:5 5am Reason for Visit Admit Date Weight gain September 16, 2024 9:5 5am Wellness examination September 16, 2024 9: 55am Additional Source Comments INFORMATION SOURCE (unrecogn ized section and content) DATE CREATED AUTHOR 11/14/2022 [facility] REASON FOR VISIT (unrecogniz ed section and content) CONGESTION, HEAD COLDSHOULDE R PAIN Care Teams (unrecognized sec tion and content) Team Status: Active Member Role Status Dates Norma Melvin MD Primary Care Provider Active Team Status: Inactive Member Role Status Hina Melvin MD Primary Care Provide r, Attending Provider Active Start: September 04, 2023 End: September 04, 2023 Team Status: Inactive Member Role Status Hina Melvin MD Primary Care Provide r, Attending Provider Active Start: October 09, 2023 End: October 09, 2023 Team Status: Inactive Member Role Status Hina Melvin MD Primary Care Provide r, Attending Provider Active Start: December 11, 2023 End: December 11, 2023 Team Status: Inactive Member Role Status Hina Melvin MD Primary Care Provider Active Start: April 11, 2024 End: April 11kenton Dawson APRNAtchip ProviderActiveStart: April 11, 2024 End: April 11, 2024 Team Status: Inactive Member Role Status Hina Melvin MD Primary Care Provide r, Attending [...] BE BASED ON THE PRIMARY CLINICAL RECORDS. [facility] [employer] [facility]. provides no warranty or guarantee of the accuracy or completeness of information in this document.
--- OUTSIDE RECORDS SUMMARY | 2025-05-26 15:21 | XMS_ITS | Clinical Summary ---
[facility] [place] [address] Care Team Providers Care Real Estate Agent/Broker Name Role Phone Norma Melvin MD Primary Care Provider Allergies No known active allergies Medications No known medications Active Problems ProblemNoted DateDiagnosed DateMitral valve slearbzre89/12/2015 Overview (06/28/2015): This term is a replacement for an inactive term Family History Medical HistoryRelationCommentsGastroesophageal refluxBrother 2ArrhythmiaFather HypertensionFatherChdhd Hrt SurgMaternal GrandfatherDiabetesMaternal Grandfather Heart DiseaseMaternal GrandfatherHigh CholesterolMaternal Grandfather HypertensionMaternal GrandfatherHeart DiseaseMaternal GrandmothermvpArrhythmia MotherjuncionalOtherMothercholesteatomaCancerPaternal GrandfatherParkinsonism Paternal GrandmotherRelationStatusCommentsBrother 1AliveBrother 2AliveFather AliveMaternal GrandfatherAliveMaternal GrandmotherAliveMotherAlivePaternal GrandfatherAlivePaternal GrandmotherAlive Social History Tobacco UseTypesPacks/DayYears UsedDateSmoking Tobacco: Passive Smoke Exposure - Never SmokerAlcohol UseStandard Drinks/WeekCommentsNot Asked0 (1 standard drink = 0.6 oz pure alcohol)CommentsUnknownSex and Gender InformationValueDate RecordedSex Assigned at BirthNot on fileLegal WgkLkozoa62/28/2015 12:37 PM EST Gender IdentityNot on fileSexual OrientationNot on file Last Filed Vital Signs Vital SignReadingTime TakenCommentsBlood Vcafqzax171/8203 8:45 AM EDT Jnfyl0925 8:44 AM EDTTemperature--Respiratory Zyrl4906 8:44 AM EDTOxygen Saturation--Inhaled Oxygen Concentration--Ajkdmd71.6 kg (142 lb 6.7 oz)09/09/2014 8:44 AM RZEQnldzn640 cm (5' 3.39 )09/09/2014 8:44 AM EDTBody Mass Index24.9209/09/2014 8:44 AM EDT Plan of Treatment Health MaintenanceDue DateLast DoneCommentsMMR (1 of 1 - Standard series) 12/16/1999Tetanus Diphtheria and Pertussis Vaccines (1 - Tdap)2005 Varicella (1 of 2 - 13+ 2-dose series)12/16/2011HPV (1 - 3-dose series) 2013MenB (1 of 2 - MenB 2-Dose Series Bexsero)2014Hepatitis B (1 of 3 - 19+ 3-dose series)2017COVID-19 ( season)2025FLU (#1) 03/01/2025HIBAged OutNo longer eligible based on patient's age to complete this topicHepatitis AAged OutNo longer eligible based on patient's age to complete this topicMenACWYAged OutNo longer eligible based on patient's age to complete this topicNirsevimabAged OutNo longer eligible based on patient's age to complete this topicPneumococcalAged OutNo longer eligible based on patient's age to complete this topicPolioAged OutNo longer eligible based on patient's age to complete this topicRotavirusAged OutNo longer eligible based on patient's age to complete this topic Insurance Care Teams Team MemberRelationshipSpecialtyStart DateEnd Date Norma Melvin MD [address] [phone] PCP - GeneralFamily Medicine07/27/14
--- OUTSIDE RECORDS SUMMARY | 2025-05-26 15:21 | XMS_ITS | Encounter Summary ---
Author Organization [facility] Address [address] [place] [address] Care Team Providers Care Vice Squad Police Officer Name Role Phone Norma Melvin MD Primary Care Provider [phone] Encounter Details DateTypeDepartmentCare Team (Latest Contact Info)Bbolgjybicp85/19/2025Travel Social History Tobacco UseTypesPacks/DayYears UsedDateSmoking Tobacco: NeverSmokeless Tobacco: NeverAlcohol UseStandard Drinks/WeekCommentsNot Currently0 (1 standard drink = 0.6 oz pure alcohol)Occasional alcohol useCommentsUnknownSex and Gender InformationValueDate RecordedSex Assigned at LglkzBwrbyo76/13/2023 10:34 AM EDT Legal VqqMfntrh58/15/2023 6:34 PM EDTGender WppybaunXoqpqt33/13/2023 10:34 AM EDTSexual OrientationChoose not to /13/2023 10:34 AM EDTdocumented as of this encounter Plan of Treatment Not on file documented as of this encounter Visit Diagnoses Not on filedocumented in this encounter Care Teams Team MemberRelationshipSpecialtyStart DateEnd Date Norma Melvin MD [address] [facility] [place] [phone] PCP - GeneralFamily Medicine01/17/23documented as of this encounter
--- OUTSIDE RECORDS SUMMARY | 2025-05-26 15:21 | XMS_ITS | Clinical Summary ---
Author Organization [facility] Address [address] [place] [address] Care Team Providers Care Wet Crown Blocking Operator Name Role Phone Norma Melvin MD Primary Care Provider [phone] Allergies No known active allergies Medications MedicationSigDispense QuantityRefillsLast FilledStart DateEnd DateStatus phentermine (Adipex-P) 37.5 MG tablet Take 37.5 mg by mouth in the morning. Take before meals.5Active norethindrone-ethinyl estradiol (07/20) 1-20 MG-MCG tablet Indications:Well woman exam with routine gynecological exam, control counselingTake 1 tablet by mouth Daily 84 tablet ctive norethindrone-ethinyl estradiol (07/20) 1-20 MG-MCG tablet Indications: control counselingTake 1 tablet by mouth Daily 84 tablet Discontinued(Reorder) Encounters DateTypeDepartmentCare TmvmTrsukoixokn19/26/2025 11:00 AM ESTProcedure Visit [facility] [address] [place] [address] Erika Vital PA Well woman exam with routine gynecological exam; control asxmvbiwvz53/26/2025amboo flowsheet [facility] [address] [address] [place] [address] Erika Vital PA 05/19/20256899Nmzvnd42/23/2025Telephone [facility] [address] [place] [address] Venecia Alvarenga MA 04/15/2025Refill [facility] [address] [place] [phone] Abhay Zhao, control counselingfrom Last 3 Months Family History RelationNameStatusCommentsBrother 1AliveBrother 2AliveFatherAliveMotherAliveSon Alive Social History Tobacco UseTypesPacks/DayYears UsedDateSmoking Tobacco: NeverSmokeless Tobacco: Never Tobacco Cessation:Counseling Given: Not Answered Alcohol UseStandard Drinks/WeekCommentsNot Currently0 (1 standard drink = 0.6 oz pure alcohol)Occasional alcohol useCommentsNoSex and Gender Information ValueDate RecordedSex Assigned at DiqdxZzbpwk94/13/2023 10:34 AM EDTLegal Sex Syfruk0509/12/2022 6:34 PM EDTGender FtbiyuwyWdfoaq18/13/2023 10:34 AM EDTSexual OrientationChoose not to nhglhska27/13/2023 10:34 AM EDT Last Filed Vital Signs Vital SignReadingTime TakenCommentsBlood Ejfgwnlf969/9205/26/2025 11:20 AM EST Pulse--Temperature--Respiratory Rate--Oxygen Saturation--Inhaled Oxygen Concentration--Alujuw66.4 kg (175 lb 1.9 oz)05/26/2025 11:20 AM FQVWrutwo831 cm (5' 3 )01/17/2023 11:19 AM EDTBody Mass Index31.02001/17/2023 11:19 AM EDT Plan of Treatment Not on file Insurance Care Teams Team MemberRelationshipSpecialtyStart DateEnd Date Norma Melvin MD [address] [place] [address] PCP - GeneralFamily Medicine01/17/23
--- OUTSIDE RECORDS SUMMARY | 2025-05-26 15:21 | XMS_ITS | Encounter Summary ---
Author Organization [facility] Address [address] [place] [address] Care Team Providers Care Bridge Teacher Name Role Phone Norma Melvin MD Primary Care Provider [phone] Encounter Details DateTypeDepartmentCare Team (Latest Contact Info)Cygfhudmxcq09/26/2025Bamboo flowsheet [facility] [address] [address] Erika Vital PA [address] [place], [facility] Social History Tobacco UseTypesPacks/DayYears UsedDateSmoking Tobacco: NeverSmokeless Tobacco: NeverAlcohol UseStandard Drinks/WeekCommentsNot Currently0 (1 standard drink = 0.6 oz pure alcohol)Occasional alcohol useCommentsNoSex and Gender InformationValueDate RecordedSex Assigned at HnhpcLnxwxf72/13/2023 10:34 AM EDT Legal RqtRbychn64/15/2023 6:34 PM EDTGender YkzkaauaAzxhyi15/13/2023 10:34 AM EDTSexual OrientationChoose not to fnqiwhce72/13/2023 10:34 AM EDTdocumented as of this encounter Plan of Treatment Not on file documented as of this encounter Visit Diagnoses Not on filedocumented in this encounter Care Teams Team MemberRelationshipSpecialtyStart DateEnd Date Norma Melvin MD [address] [place] [phone] PCP - GeneralFamily Medicine01/17/23documented as of this encounter
[2025-05-30 13:08] LABS: Age Gdln ACOG Testing Note (.); IGP, rfx Aptima HPV ASCU Note (.)
== END 2025-05-26 15:18 | disposition home or self-care (01) ==
LOC: LAB 15:17
PROVIDERS: PCP Nurse Practitioner Family; Visit Provider Physician Assistant
DX: Z01.419 Encounter for gynecological examination (general) (routine) without abnormal findings (principal)
CPT/HCPCS: 88175